=== PATIENT | male | born 1955 | race Caucasian/White ===

== ENCOUNTER 2018-05-11 22:26 | Inpatient (IN) ==
[2018-05-12] MEDS ORDERED: Naloxone 0.4 MG/ML INJ IVP PRN (00:56)
--- NOTE | 2018-05-12 01:08 | Internal Med History&Physical ---
<Opal Linton - Last Filed: 05/12/18 01:49> Date of Encounter: 05/12/18 Time of Encounter: 01:05 Internal Medicine - H&P: HPI Chief complaint: cold symptoms Admitted From: Emergency Dept Plans for Post Hospital Care: Home History of present illness: Mr. Perales is a 63 year old male with past medical history of COPD, diabetes, hyperlipidemia, hypertension, bipolar disorder, schizophrenia. Patient arrived to [place] emergency department earlier today complaining of cold like symptoms. He reported productive cough with sputum, generalized muscle aches. In [place] [facility] emergency department, he was hypoxic, somnolent. Initial ABG showed evidence of respiratory acidosis. Serial ABG's were drawn in [place] emergency department, showing that his acidosis and CO2 retention was progressively worsening. Patient was initially placed on BiPAP without any improvement in his blood gases. He initially refused intubation, but later agreed. Patient was intubated and transferred to [place] for further management and workup. Upon arrival, patient did not have any family members at bedside to give adequate history. Past Med Surg Social Fam HX - Past Medical History Medical history: COPD, diabetes, hyperlipidemia, hypertension Additional medical history: Hernia Psychiatric history: bipolar, schizophrenia - Past Surgical History Additional surgical history: Bowel surgery. Colostomy. Reversal of colostomy. Rt arm surgery. - Social History Smoking Status: Current every day smoker Smokeless Tobacco Status: No Alcohol use: none Drug use: none Internal Medicine - H&P: Meds Unable To Obtain [Unable to Obtain] 01/11/18 [History] Allergy/AdvReac Type Severity Reaction Status Date / Time vancomycin Allergy Hives Verified 05/11/18 13:30 ROS unobtainable: due to endotracheal tube All Systems PM: A 10-system review of systems was performed and is negative for pertinent findings except as documented above in the HPI. - Constitutional General appearance: Present: no acute distress, underweight. Absent: answers questions appropriately Exam: Patient appears thin. He is intubated and sedated, appears to be in no acute distress. - Head Head exam: Present: atraumatic, normocephalic - Eye Eye exam: Present: PERRL, sclera anicteric. Absent: periorbital tenderness Pupils: Present: PERRL - Neck Neck exam general surgery: Present: supple, trachea midline - Respiratory Respiratory exam: Present: decreased breath sounds. Absent: rales, respiratory distress, rhonchi, wheezes - Cardiovascular Cardiovascular exam: Present: +S1, +S2, tachycardia - GI/Abdominal GI/Abdominal exam: Present: normal bowel sounds, soft. Absent: distended, tenderness Additional comments: Abdominal scar present from prior surgeries, abdominal hernia present. - Extremities Exam Extremities exam: Absent: cyanotic, pedal edema - Neurological Exam Additional comments: intubated and sedated. - Psychiatric Psychiatric exam: Present: normal affect, normal mood - Skin Skin exam: Present: dry, intact - Assessment and plan (1) Acute respiratory failure with hypoxia and hypercapnia Current Visit: Yes Status: Acute Assessment and plan: Patient arrived to [place] emergency department earlier with symptoms of productive cough, generalized muscle aches. He was hypoxic and hypercapnic without any improvement on BiPAP, and was subsequently intubated. Patient did meet Sirs criteria with tachycardia, tachypnea, likely secondary to respiratory distress. No current concern for sepsis at this time Chest x-ray showed no obvious focal consolidation. WBC normal, initial troponin negative. Etiology likely secondary to COPD exacerbation. Plan: blood cultures x2 respiratory infectious panel Levaquin day 1 solumedrol BID scheduled DuoNebs Legionella, S.pneumo, mycoplasma antigens pending continue with mechanical ventilation: FIO2: 50%, Tv: 500, R: 14, PEEP: 5 sedation with propofol, fentanyl. (2) COPD exacerbation Current Visit: Yes Status: Acute Assessment and plan: plan as above (3) Hypertension Current Visit: Yes Status: Acute Assessment and plan: currently hypotensive, hold home blood pressure meds. Qualifiers: Hypertension type: essential hypertension Qualified Code(s): I10 - Essential (primary) hypertension (4) Hyperlipidemia Current Visit: Yes Status: Acute Qualifiers: Hyperlipidemia type: unspecified Qualified Code(s): E78.5 - Hyperlipidemia, unspecified (5) DVT prophylaxis Current Visit: Yes Status: Acute Assessment and plan: heparin SQ - Time Spent With Patient Total time spent is greater than 50% in coordination of care (as documented) at patient's floor/unit and/or counseling patient: <Sim Epps - Last Filed: 05/12/18 03:23> Date of Encounter: 05/12/18 Internal Medicine - H&P: HPI History of present illness: Mr. Perales is a 63 year old male All Systems PM: A 10-system review of systems was performed and is negative for pertinent findings except as documented above in the HPI. - Constitutional Vitals: Temp Pulse Resp BP Pulse Ox 97.9 F 64 14 93/65 98 05/12/18 01:00 05/12/18 01:59 05/12/18 02:20 05/12/18 02:20 05/12/18 02:20 Internal Med - H&P Results - Labs Labs: Cardiac Enzymes 05/12/18 Range/Units 00:59 Troponin I 0.03 (< 0.04) ng/mL - Time Spent With Patient Total time spent is greater than 50% in coordination of care (as documented) at patient's floor/unit and/or counseling patient: - Attending Attestation I performed a history and physical exam of the patient and discussed management with the resident. I reviewed the resident's note and agree with the documented findings and plan of care. José Perales is a 63-year-old male with COPD who is brought here on transfer from [facility] where he was taken to initially with flulike symptoms and was noted hypoxic and somnolent. He was noted hypoxic and ABG showing signs of respiratory acidosis. He failed to improve on noninvasive ventilation and became more hypercarbic and acidotic. He was subsequently intubated and he is currently here being managed for acute hypercarbic respiratory failure due to COPD exacerbation. He will remain on light sedation. Repeat blood gas. Send respiratory virus panel. Steroids and antibiotics indicated. Every 4 hourly nebulizer therapy. Sedate to RASS -1 to assess readiness to extubate in the morning. DVT prophylaxis required. SYLVIE JENKINS.
[2018-05-12] MEDS ORDERED: Artificial Tears SOLN 15 ML BOTTLE BOTH EYES PRN (01:37)
[2018-05-12] MEDS ORDERED: Dextrose Gel 15 GM/37.5 ML TUBE PO PRN ×2 (02:17)
[2018-05-12] MEDS ORDERED: *HR* Dextrose 50 % in Water (Syg) 50 ML SYRINGE IVP PRN (02:17)
[2018-05-12] MEDS ORDERED: D5% in Water 1,000 ML IVC PRN (02:17)
[2018-05-12] MEDS: Ipratropium/Albuterol Neb 3 ML IH SCH ×6 (03:37→23:40)
[2018-05-12] MEDS: Artificial Tears SOLN 15 ML BOTTLE BOTH EYES SCH ×5 (04:50→20:06)
[2018-05-12 04:59] LABS: ABG Base Excess 1 mEq/L (-2 to 3); ABG HCO3 28 mEq/L (21-27); ABG Oxygen Saturation 96 % (95-98); ABG PCO2 53 mmHg (35-45); ABG PH 7.33 pH Units (7.32-7.45); ABG PO2 88 mmHg (85-104); ABG TCO2 30 mEq/L (20-26); Blood Gas Modality VC; Blood Gas PEEP 5 cm H2O; Blood Gas Respiration Rate 14; Blood Gas VT 500 cc
[2018-05-12] MEDS: *HR* Heparin 5,000 UNIT/ML VIAL SQ SCH ×2 (05:11→18:02)
[2018-05-12] MEDS: Insulin LISPRO 300 UNITS/3 ML VIAL SQ SCH ×3 (05:11→18:02)
[2018-05-12] MEDS ORDERED: MethylPREDNISolone 40 MG/ML VIAL IVP SCH (06:00)
--- NOTE | 2018-05-12 06:44 | Pulmonology Consult Note ---
<Fredis Gallardo W - Last Filed: 05/12/18 09:21> Date of Encounter: 05/12/18 Medications and Allergies Unable To Obtain [Unable to Obtain] 01/11/18 [History] Allergy/AdvReac Type Severity Reaction Status Date / Time vancomycin Allergy Hives Verified 05/11/18 13:30 All Systems: The remainder of the systems were reviewed and are negative Physical Examination Vital Signs: Vital Signs, Last 4 Hours Temp Pulse Resp BP Pulse Ox 05/12/18 07:17 17 120/72 98 05/12/18 07:00 70 14 120/72 95 05/12/18 06:00 58 14 102/69 98 05/12/18 05:52 15 96/65 96 05/12/18 05:00 74 16 108/67 98 05/12/18 04:09 96.4 F L 05/12/18 04:00 70 14 104/66 98 Ventilator Settings Ventilator Settings: Ventilator Settings, Last 8 Hours Ventilator Tidal Volume 500 Setting Ventilator Tidal Volume 500 Setting Ventilator Tidal Volume 500 Setting Ventilator Tidal Volume 500 Setting Ventilator Tidal Volume 500 Setting Ventilator Tidal Volume 500 Setting Ventilator Tidal Volume 500 Setting Ventilator Tidal Volume 500 Setting Ventilator Tidal Volume 500 Setting Ventilator Tidal Volume 500 Setting Ventilator Tidal Volume 500 Setting Ventilator Tidal Volume 500 Setting Ventilator Tidal Volume 500 Setting Ventilator Tidal Volume 500 Setting Ventilator Tidal Volume 500 Setting Ventilator Respiratory Rate 14 Setting Ventilator Respiratory Rate 14 Setting Ventilator Respiratory Rate 14 Setting Ventilator Respiratory Rate 14 Setting Ventilator Respiratory Rate 14 Setting Ventilator Respiratory Rate 14 Setting Ventilator Respiratory Rate 14 Setting Ventilator Respiratory Rate 14 Setting Ventilator Respiratory Rate 14 Setting Ventilator Respiratory Rate 14 Setting Ventilator Respiratory Rate 14 Setting Ventilator Respiratory Rate 14 Setting Ventilator Respiratory Rate 14 Setting Ventilator Respiratory Rate 14 Setting Ventilator Respiratory Rate 14 Setting Actual Respiratory Rate 17 Actual Respiratory Rate 14 Actual Respiratory Rate 14 Actual Respiratory Rate 14 Actual Respiratory Rate 14 Actual Respiratory Rate 14 Actual Respiratory Rate 14 Actual Respiratory Rate 14 Actual Respiratory Rate 14 Actual Respiratory Rate 14 Actual Respiratory Rate 14 Actual Respiratory Rate 14 Actual Respiratory Rate 14 Actual Respiratory Rate 21 Positive End Expiratory 5 Pressure Positive End Expiratory 5 Pressure Positive End Expiratory 5 Pressure Positive End Expiratory 5 Pressure Positive End Expiratory 5 Pressure Positive End Expiratory 5 Pressure Positive End Expiratory 5 Pressure Positive End Expiratory 5 Pressure Positive End Expiratory 5 Pressure Positive End Expiratory 5 Pressure Positive End Expiratory 5 Pressure Positive End Expiratory 5 Pressure Positive End Expiratory 5 Pressure Positive End Expiratory 5 Pressure Positive End Expiratory 5 Pressure Peak Inspiratory Airway 20 Pressure Peak Inspiratory Airway 21 Pressure Peak Inspiratory Airway 20 Pressure Peak Inspiratory Airway 20 Pressure Peak Inspiratory Airway 20 Pressure Peak Inspiratory Airway 22 Pressure Peak Inspiratory Airway 22 Pressure Peak Inspiratory Airway 36 Pressure Peak Inspiratory Airway 31 Pressure Peak Inspiratory Airway 40 Pressure Peak Inspiratory Airway 33 Pressure Peak Inspiratory Airway 31 Pressure Peak Inspiratory Airway 44 Pressure Peak Inspiratory Airway 33 Pressure Results - Laboratory Findings CBC and BMP: 05/12/18 06:29 05/12/18 06:29 ABG ABG pH 7.33 pH Units (7.32-7.45) 05/12/18 04:55 ABG pCO2 53 mmHg (35-45) H 05/12/18 04:55 ABG pO2 88 mmHg (85-104) 05/12/18 04:55 ABG O2 Saturation 96 % (95-98) 05/12/18 04:55 Abnormal lab findings: Abnormal lab results RBC 4.10 M/mcL (4.19-5.50) L 05/12/18 06:29 ABG pCO2 53 mmHg (35-45) H 05/12/18 04:55 ABG HCO3 28 mEq/L (21-27) H 05/12/18 04:55 ABG Total CO2 30 mEq/L (20-26) H 05/12/18 04:55 Chloride 108 mEq/L (98-107) H 05/12/18 06:29 BUN/Creatinine Ratio 30 (6-26) H 05/12/18 06:29 Glucose 125 mg/dL (70-105) H 05/12/18 06:29 POC Glucose 143 mg/dL (70-99) H 05/12/18 01:03 Calculated Osmolality 304 (280-300) H 05/12/18 06:29 AST 10 Units/L (13-39) L 05/12/18 06:29 Serum Total Protein 5.9 g/dL (6.4-8.9) L 05/12/18 06:29 Albumin 3.3 g/dL (3.5-5.7) L 05/12/18 06:29 - Microbiology Findings Microbiology Findings: Microbiology, Last 48 Hours 05/12/18 01:25 Blood Culture - Preliminary Peripheral Venipuncture Culture is incubating and being continuously monitored for growth. Final report to follow. 05/12/18 01:29 Blood Culture - Preliminary Peripheral Venipuncture Culture is incubating and being continuously monitored for growth. Final report to follow. - Clinical Findings Intake & Output: Intake & Output 05/11/18 05/11/18 05/12/18 15:59 23:59 07:59 Output Total 305 / 305 Balance -305 / -305 Weight 59.6 kg Consult Discharge Plan - Plan Referrals: NONE,PCP [Primary Care Provider] - - Attending Attestation I examined this patient and my medical decision-making was reviewed with the Resident Physician. I agree with the documented findings, disposition and treatment plan as described except to the extent set forth below. We inde pendently had [id number] contact with the patient Patient seen and examined at bedside Labs, radiology, chart personally reviewed. Management was reviewed during multidisciplinary critical care rounds. LAMINATION OPERATOR: Patient currently sedated but able to open his eyes and follow simple commands plan to transition from propofol to Precedex and fentanyl preparing for liberation from the vent Pulm: Acute on chronic hypoxic hypercapnic respiratory failure secondary to COPD exacerbation possibly complicated by pneumonia he is currently intubated acceptable gas exchange today on vent plan for CPAP trial and likely liberation later in the day continue IV steroids and bronchodilators will funeral planning counselor the patient on the necessity for tobacco cessation. Start Symbicort 160/4.52 puffs twice a day Cards: Blood pressure monitored and stable no evidence of ACS check BNP GI: Some bloody contents from the OG tube which I suspect reflects OG tube traum a he is on a PPI for this is suspected by removal of the tube that this will improve things and if there is further concern we will consult GI recheck H&H now Nutrition: By mouth for now pending liberation from the vent Renal: UOP Monitored, Cont to Trend sCr and monitor Electrolytes. ID: He is currently on antimicrobials for community-acquired pneumonia with planned to de-escalate based upon culture and sensitivities Heme/Onc: DVT prophylaxis given. H&H stable. There is some concern about bleeding from upper GI source with this is quite minor at this time and we will monitor it Endo: Glucose Monitored Integ/MSK: Skin Care per routine ICU Nursing Protocol to prevent ulcers. Lines: All lines examined without evidence of infection : Dispo: Remain in ICU for ventilator management CODE: Full <David Jaimes - Last Filed: 05/12/18 16:42> Date of Encounter: 05/12/18 Time of Encounter: 08:15 Assessment and Plan (1) Acute respiratory failure with hypoxia and hypercapnia Current Visit: Yes Status: Acute Pt was intubated at [place] last night for worsening ABGs and respiratory distress Likely precipitated by COPD exacerbation related to viral infection Pt was tachypnic and tachycardic on arrival at [place], but likely related to respiratory distress vs true SIRS reaction WBC remains normal at 6.9 CXR revealed bibasilar airspace disease, atelectasis vs pneumonia. No obvious consolidations. Respiratory infection panel negative MRSA swab negative Strep pneumo and legionella antigens negative ABG this morning improved at pH 7.33; pCO2 53 and Bicarb 28 Tolerated CPAP trial well with occasional tachypnea likely related to anxiety Extubated successfully to BiPAP Continue to monitor Blood cultures x2 pending Sputum culture pending - bacteria seen with few gram positive cocci Mycoplasma IgG and IgM pending Levaquin day 1 Solumedrol 40mg TID Ativan prn for anxiety Scheduled duonebs Supplemental O2 with goal SpO2 >88% Restarting po home meds (2) COPD exacerbation Current Visit: Yes Status: Acute plan as above (3) Hyperlipidemia Current Visit: Yes Status: Acute Continue home statin Qualifiers: Hyperlipidemia type: unspecified Qualified Code(s): E78.5 - Hyperlipidemia, unspecified (4) BPH (benign prostatic hyperplasia) Current Visit: Yes Status: Chronic Known hx per outpatient notes with urology Continue home meds of tamsulosin and oxybutynin Qualifiers: Lower urinary tract symptom presence: symptoms present Lower urinary tract symptom detail: nocturia Qualified Code(s): N40.1 - Benign prostatic hyperplasia with lower urinary tract symptoms; R35.1 - Nocturia (5) DVT prophylaxis Current Visit: Yes Status: Acute SQ Heparin History of Present Illness Consult date: 05/12/18 Reason for consult: cough, COPD Chief complaint: COPD exacerbation History of present illness: Mr. Perales is a 63M with PMH of COPD, diabetes, hyperlipidemia, hypertension, bipolar disorder, schizophrenia. Patient arrived to [place] emergency department on 05/11 complaining of cold like symptoms. He reported productive cough with sputum, generalized muscle aches. In [place] emergency department, he was hypoxic, somnolent. Initial ABG showed evidence of respiratory acidosis. Serial ABG's were drawn in [place] emergency department, showing that his acidosis and CO2 retention was progressively worsening. Patient was initially placed on BiPAP without any improvement in his blood gases. He initially refused intubation, but later agreed. Patient was intubated and transferred to [place] for further management and workup. Upon arrival, patient did not have any family members at bedside to give adequate history. Pt seen and examined at bedside. Pt resting in bed and intubated. Responds to verbal stimuli and follows commands. Pt gestured for pen and was able to write "Can I go home?" He does endorse that he feels like he needs to cough. Denies any chest pain, palpitations, or abdominal pain. Past Med Surg Social Fam HX - Past Medical History Medical history: COPD, diabetes, hyperlipidemia, hypertension Additional medical history: Hernia Psychiatric history: bipolar, schizophrenia - Past Surgical History Additional surgical history: Bowel surgery. Colostomy. Reversal of colostomy. Rt arm surgery. - Social History Smoking Status: Current every day smoker Smokeless Tobacco Status: No Alcohol use: none Drug use: none ROS unobtainable: due to endotracheal tube All Systems: The remainder of the systems were reviewed and are negative Physical Examination Vital Signs: Vital Signs, Last 4 Hours Temp Pulse Resp BP Pulse Ox 05/12/18 06:00 58 14 102/69 98 05/12/18 05:52 15 96/65 96 05/12/18 05:00 74 16 108/67 98 05/12/18 04:09 96.4 F L 05/12/18 04:00 70 14 104/66 98 05/12/18 03:38 14 103/71 98 05/12/18 03:00 54 14 107/69 97 General appearance: alert, appears uncomfortable Eyes: nonicteric ENT: oropharynx moist Neck: supple Effort: normal Inspection: normal Auscultation: bilateral: rales (> in bases and on left ) Percussion: bilateral: not dull Cardiovascular: regular rate and rhythm Gastrointestinal: normoactive bowel sounds, soft, non-tender, non-distended Integumentary: normal Extremities: no cyanosis, no edema, no clubbing, pink and warm, pulses normal, no ischemia or petechiae Musculoskeletal: no deformities Gait: normal posture pupils equal and round, motor strength normal and symmetric mood appropriate, affect normal Ventilator Settings Ventilator Settings: Ventilator Settings, Last 8 Hours Ventilator Tidal Volume 500 Setting Ventilator Tidal Volume 500 Setting Ventilator Tidal Volume 500 Setting Ventilator Tidal Volume 500 Setting Ventilator Tidal Volume 500 Setting Ventilator Tidal Volume 500 Setting Ventilator Tidal Volume 500 Setting Ventilator Tidal Volume 500 Setting Ventilator Tidal Volume 500 Setting Ventilator Tidal Volume 500 Setting Ventilator Tidal Volume 500 Setting Ventilator Tidal Volume 500 Setting Ventilator Tidal Volume 500 Setting Ventilator Respiratory Rate 14 Setting Ventilator Respiratory Rate 14 Setting Ventilator Respiratory Rate 14 Setting Ventilator Respiratory Rate 14 Setting Ventilator Respiratory Rate 14 Setting Ventilator Respiratory Rate 14 Setting Ventilator Respiratory Rate 14 Setting Ventilator Respiratory Rate 14 Setting Ventilator Respiratory Rate 14 Setting Ventilator Respiratory Rate 14 Setting Ventilator Respiratory Rate 14 Setting Ventilator Respiratory Rate 14 Setting Ventilator Respiratory Rate 14 Setting Actual Respiratory Rate 14 Actual Respiratory Rate 14 Actual Respiratory Rate 14 Actual Respiratory Rate 14 Actual Respiratory Rate 14 Actual Respiratory Rate 14 Actual Respiratory Rate 14 Actual Respiratory Rate 14 Actual Respiratory Rate 14 Actual Respiratory Rate 14 Actual Respiratory Rate 14 Actual Respiratory Rate 21 Positive End Expiratory 5 Pressure Positive End Expiratory 5 Pressure Positive End Expiratory 5 Pressure Positive End Expiratory 5 Pressure Positive End Expiratory 5 Pressure Positive End Expiratory 5 Pressure Positive End Expiratory 5 Pressure Positive End Expiratory 5 Pressure Positive End Expiratory 5 Pressure Positive End Expiratory 5 Pressure Positive End Expiratory 5 Pressure Positive End Expiratory 5 Pressure Positive End Expiratory 5 Pressure Peak Inspiratory Airway 20 Pressure Peak Inspiratory Airway 20 Pressure Peak Inspiratory Airway 20 Pressure Peak Inspiratory Airway 22 Pressure Peak Inspiratory Airway 22 Pressure Peak Inspiratory Airway 36 Pressure Peak Inspiratory Airway 31 Pressure Peak Inspiratory Airway 40 Pressure Peak Inspiratory Airway 33 Pressure Peak Inspiratory Airway 31 Pressure Peak Inspiratory Airway 44 Pressure Peak Inspiratory Airway 33 Pressure Results - Laboratory Findings CBC and BMP: 05/12/18 09:46 05/12/18 06:29 ABG ABG pH 7.33 pH Units (7.32-7.45) 05/12/18 04:55 ABG pCO2 53 mmHg (35-45) H 05/12/18 04:55 ABG pO2 88 mmHg (85-104) 05/12/18 04:55 ABG O2 Saturation 96 % (95-98) 05/12/18 04:55 Abnormal lab findings: Abnormal lab results ABG pCO2 53 mmHg (35-45) H 05/12/18 04:55 ABG HCO3 28 mEq/L (21-27) H 05/12/18 04:55 ABG Total CO2 30 mEq/L (20-26) H 05/12/18 04:55 POC Glucose 143 mg/dL (70-99) H 05/12/18 01:03 - Microbiology Findings Microbiology Findings: Microbiology, Last 48 Hours 05/12/18 01:25 Blood Culture - Preliminary Peripheral Venipuncture Culture is incubating and being continuously monitored for growth. Final report to follow. 05/12/18 01:29 Blood Culture - Preliminary Peripheral Venipuncture Culture is incubating and being continuously monit ored for growth. Final report to follow. - Clinical Findings Intake & Output: Intake & Output 05/11/18 05/11/18 05/12/18 15:59 23:59 07:59 Output Total 305 / 305 Balance -305 / -305 Weight 59.6 kg
[2018-05-12 06:45] LABS: Basophils % 0.2 %; Hematocrit 38.3 % (37.5-50.1); Immature Granulocytes % 0.4 % (0-4); Lymphocytes % 10.8 %; Mean Corpuscular HGB Conc 33.9 g/dL (31.6-35.5); Mean Corpuscular Hemoglobin 31.7 pg (28.0-33.3); Mean Corpuscular Volume 93.4 fL (83.0-100.0); Mean Platelet Volume 9.7 fL (9.4-12.4); Monocytes # 0.9 K/mcL (0.0-1.3); Neutrophils # 7.6 K/mcL (1.6-8.9); Platelet Count 179 K/mcL (140-400); Segmented Neutrophils % 79.6 %
[2018-05-12 07:13] LABS: Alanine Aminotransferase 9 Units/L (7-52); Albumin 3.3 g/dL (3.5-5.7); Albumin/Globulin Ratio 1.3 (1.1-2.2); Alkaline Phosphatase 52 Units/L (34-104); Aspartate Amino Transferase 10 Units/L (13-39); BUN/Creatinine Ratio 30 (6-26); Bilirubin,Total 0.3 mg/dL (0.3-1.0); Blood Urea Nitrogen 21 mg/dL (8-23); Carbon Dioxide 26 mEq/L (23-29); Chloride 108 mEq/L (98-107); Globulin 2.6 g/dL (2.4-3.5); Glucose 125 mg/dL (70-105); Osmolality,Calculated 304 (280-300); Phosphorous 4.3 mg/dL (2.7-4.5); Potassium 3.6 mEq/L (3.5-5.1); Sodium 145 mEq/L (136-145); Total Protein 5.9 g/dL (6.4-8.9); eGFR For Non-African Americans > 60 (> 60)
[2018-05-12] MEDS: FentaNYL (PF) 1,000 MCG in 0.9 % Sodium Chloride 80 ML IVC SCH (07:21)
[2018-05-12] MEDS ORDERED: Dexmedetomidine HCl 400 MCG/100 ML MLS IVC ONE (07:25)
[2018-05-12] MEDS: Dexmedetomidine HCl 400 MCG/100 ML MLS IVC SCH ×2 (07:30→19:30)
[2018-05-12 07:54] LABS: Bilirubin,Urine Small (Negative); Blood,Urine Moderate (Negative); Glucose,Urine (UA) Normal (Normal); Ketones,Urine Trace mg/dL (Negative); Leukocyte Esterase,Urine Negative (Negative); Nitrite,Urine Negative (Negative); Protein,Urine 30 mg/dL (Neg-Trace); Specific Gravity,Urine 1.023 (1.010-1.025); Urobilinogen,Urine Normal (Normal)
[2018-05-12 07:55] LABS: Bacteria,Urine None Seen per hpf (None-Few); Hyaline Casts,Urine None Seen per lpf (None-Few); RBC,Urine 50-100 per hpf (0-3); Squamous Epithelial Cell,Urine Many per lpf (None-Few)
[2018-05-12 07:58] LABS: Clarity,Urine Clear (Clear); Color,Urine Yellow (Yellow)
[2018-05-12] MEDS: Levofloxacin 500 MG/100 ML 500 MG/100 ML BAG IVPB SCH (08:07)
[2018-05-12] MEDS: Chlorhexidine Rinse 15 ML MOUTHWASH MM SCH ×2 (08:07→20:06)
[2018-05-12] MEDS: Pantoprazole 40 MG VIAL IVP SCH (08:07)
[2018-05-12 09:53] LABS: Hematocrit 39.3 % (37.5-50.1)
[2018-05-12] MEDS ORDERED: Potassium Chloride 40 MEQ, Lidocaine 1% 2 ML in D5% in Water 500 ML IVPB ONE (10:24)
[2018-05-12 10:25] LABS: Adenovirus Not Detected (Not Detect); Bordetella Pertussis Not Detected (Not Detect); Chlamydophila pneumoniae Not Detected (Not Detect); Coronavirus 229E Not Detected (Not Detect); Coronavirus HKU1 Not Detected (Not Detect); Coronavirus NL63 Not Detected (Not Detect); Coronavirus OC43 Not Detected (Not Detect); Human Metapneumovirus Not Detected (Not Detect); Human Rhinovirus/Enterovirus Not Detected (Not Detect); Influenza A Subtype 2009 H1 Not Detected (Not Detect); Influenza A Untypeable Not Detected (Not Detect); Influenza B Not Detected (Not Detect); Mycoplasma pneumoniae Not Detected (Not Detect); Parainfluenza Virus 1 Not Detected (Not Detect); Parainfluenza Virus 2 Not Detected (Not Detect); Parainfluenza Virus 3 Not Detected (Not Detect); Parainfluenza Virus 4 Not Detected (Not Detect); Respiratory Syncytial Virus Not Detected (Not Detect)
[2018-05-12] MEDS ORDERED: *HR* LORazepam 2 MG/ML VIAL IVP PRN (11:17)
[2018-05-12] MEDS ORDERED: *HR* Rocuronium Bromide 50 MG/5 ML VIAL IVC ONE (14:29)
[2018-05-12] MEDS ORDERED: *HR* Etomidate 40 MG/20 ML VIAL IVP ONE (14:29)
[2018-05-12] MEDS: MethylPREDNISolone 40 MG/ML VIAL IVP SCH ×2 (15:11→21:06)
[2018-05-12] MEDS ORDERED: Ringers Solution, Lactated 1,000 ML IVC SCH (17:00)
[2018-05-12] MEDS: Ringers Solution, Lactated 500 ML IVC SCH (20:05)
[2018-05-12] MEDS ORDERED: risperiDONE 1 MG TABLET PO SCH (20:12)
[2018-05-12] MEDS: lamoTRIgine 100 MG TABLET PO SCH (21:09)
[2018-05-13] MEDS: Ringers Solution, Lactated 500 ML IVC SCH ×3 (00:04→07:42)
[2018-05-13] MEDS: Artificial Tears SOLN 15 ML BOTTLE BOTH EYES SCH ×2 (00:05→04:39)
[2018-05-13] MEDS: FentaNYL (PF) 1,000 MCG in 0.9 % Sodium Chloride 80 ML IVC SCH (00:05)
[2018-05-13] MEDS: Insulin LISPRO 300 UNITS/3 ML VIAL SQ SCH ×4 (00:13→16:16)
[2018-05-13] MEDS: Ipratropium/Albuterol Neb 3 ML IH SCH ×6 (03:39→23:20)
[2018-05-13 03:43] LABS: Basophils % 0.1 %; Hematocrit 37.9 % (37.5-50.1); Hemoglobin 12.6 g/dL (12.9-16.9); Immature Platelets 1.8 % (1.1-6.1); Lymphocytes # 0.6 K/mcL (0.6-4.6); Lymphocytes % 5.5 %; Mean Corpuscular HGB Conc 33.2 g/dL (31.6-35.5); Mean Corpuscular Volume 93.1 fL (83.0-100.0); Mean Platelet Volume 9.5 fL (9.4-12.4); Monocytes # 0.8 K/mcL (0.0-1.3); Neutrophils # 9.7 K/mcL (1.6-8.9); Platelet Count 196 K/mcL (140-400); Red Blood Count 4.07 M/mcL (4.19-5.50); Segmented Neutrophils % 86.4 %
[2018-05-13 04:02] LABS: Alanine Aminotransferase 10 Units/L (7-52); Albumin 3.1 g/dL (3.5-5.7); Albumin/Globulin Ratio 1.2 (1.1-2.2); Alkaline Phosphatase 46 Units/L (34-104); Aspartate Amino Transferase 10 Units/L (13-39); BUN/Creatinine Ratio 26 (6-26); Bilirubin,Total 0.3 mg/dL (0.3-1.0); Blood Urea Nitrogen 16 mg/dL (8-23); Calcium 8.7 mg/dL (8.6-10.3); Carbon Dioxide 29 mEq/L (23-29); Chloride 107 mEq/L (98-107); Globulin 2.6 g/dL (2.4-3.5); Glucose 144 mg/dL (70-105); Magnesium 1.7 mg/dL (1.6-2.6); Osmolality,Calculated 300 (280-300); Phosphorous 2.3 mg/dL (2.7-4.5); Potassium 3.5 mEq/L (3.5-5.1); Sodium 143 mEq/L (136-145); Total Protein 5.7 g/dL (6.4-8.9); eGFR For Non-African Americans > 60 (> 60)
[2018-05-13] MEDS: *HR* Heparin 5,000 UNIT/ML VIAL SQ SCH ×2 (05:56→17:19)
[2018-05-13] MEDS: Levofloxacin 500 MG/100 ML 500 MG/100 ML BAG IVPB SCH (07:41)
[2018-05-13] MEDS: MethylPREDNISolone 40 MG/ML VIAL IVP SCH ×3 (07:41→20:21)
[2018-05-13] MEDS: lamoTRIgine 100 MG TABLET PO SCH ×2 (07:41→20:16)
[2018-05-13] MEDS: Pantoprazole 40 MG VIAL IVP SCH (07:41)
[2018-05-13] MEDS ORDERED: risperiDONE 1 MG TABLET PO SCH ×2 (09:00→21:00)
--- NOTE | 2018-05-13 09:14 | Pulmonology Progress Note ---
<KarynCipriano talbert M - Last Filed: 05/13/18 10:35> Date of Encounter: 05/13/18 Objective PUL Vital signs: Last Vital Signs Temp 98.1 F 05/13/18 07:40 Pulse 90 05/13/18 10:00 Resp 20 05/13/18 10:00 BP 104/66 05/13/18 10:00 Pulse Ox 94 05/13/18 10:00 Results - Laboratory Findings CBC and BMP: 05/13/18 03:26 05/13/18 03:26 ABG ABG pH 7.33 pH Units (7.32-7.45) 05/12/18 04:55 ABG pCO2 53 mmHg (35-45) H 05/12/18 04:55 ABG pO2 88 mmHg (85-104) 05/12/18 04:55 ABG O2 Saturation 96 % (95-98) 05/12/18 04:55 Abnormal lab findings: Abnormal lab results WBC 11.2 K/mcL (4.3-11.1) H 05/13/18 03:26 RBC 4.07 M/mcL (4.19-5.50) L 05/13/18 03:26 Hgb 12.6 g/dL (12.9-16.9) L 05/13/18 03:26 Neutrophils # 9.7 K/mcL (1.6-8.9) H 05/13/18 03:26 ABG pCO2 53 mmHg (35-45) H 05/12/18 04:55 ABG HCO3 28 mEq/L (21-27) H 05/12/18 04:55 ABG Total CO2 30 mEq/L (20-26) H 05/12/18 04:55 Creatinine 0.62 mg/dL (0.70-1.30) L 05/13/18 03:26 Glucose 144 mg/dL (70-105) H 05/13/18 03:26 POC Glucose 153 mg/dL (70-99) H 05/12/18 23:16 Phosphorus 2.3 mg/dL (2.7-4.5) L 05/13/18 03:26 AST 10 Units/L (13-39) L 05/13/18 03:26 Serum Total Protein 5.7 g/dL (6.4-8.9) L 05/13/18 03:26 Albumin 3.1 g/dL (3.5-5.7) L 05/13/18 03:26 Urine Protein 30 mg/dL (Neg-Trace) H 05/12/18 06:30 Urine Ketones Trace mg/dL (Negative) H 05/12/18 06:30 Urine Blood Moderate (Negative) H 05/12/18 06:30 Urine Bilirubin Small (Negative) H 05/12/18 06:30 Urine Microscopic RBC 50-100 per hpf (0-3) H 05/12/18 06:30 Urine Microscopic WBC 5-15 per hpf (0-3) H 05/12/18 06:30 Ur Squamous Epith Cells Many per lpf (None-Few) H 05/12/18 06:30 - Microbiology Findings Microbiology Findings: Microbiology, Last 48 Hours 05/12/18 08:56 Sputum Culture - Preliminary Sputum 05/12/18 06:30 Legionella Antigen - Final Urine,[place] Streptococcus pneumoniae Antigen (M - Final 05/12/18 01:25 Blood Culture - Preliminary Peripheral Venipuncture Culture is incubating and being continuously monitored for growth. Final report to follow. 05/12/18 01:29 Blood Culture - Preliminary Peripheral Venipuncture Culture is incubating and being continuously monitored for growth. Final report to follow. - Clinical Findings Intake & Output: Intake & Output 05/12/18 05/13/18 05/13/18 23:59 07:59 15:59 Intake Total 613.5 / 613.5 783 / 783 Output Total 900 / 900 600 / 600 Balance -286.5 / -286.5 183 / 183 Weight 59.45 kg Consult Discharge Plan - Plan Referrals: NONE,PCP [Primary Care Provider] - - Attending Attestation I examined this patient and my medical decision-making was reviewed with the Resident Physician. I agree with the documented findings, disposition and treatment plan as described except to the extent set forth below. Patient seen and examined. Labs, radiology, chart personally reviewed. Agree with resident's history and physical, assessment, plan with following comments: ROLL WINDER: Patient follows commands, Pulmonary: Acceptable oxygenation and ventilation. Patient was COPD exacerbation which has improved Recommend: Systemic steroid daily with plan to taper over 2 weeks complete 5 day course or current antibiotic is acceptable Schedule DuoNeb's while inpatient every 6 hours Patient should have ongoing nebulizer with MACO/CHANELLE solution to be used q6 Hours Recommend starting Symbicort 160/4.52 puffs twice a day Walking pulse oximetry study. A discharge Outpatient pulmonary follow-up 2-4 weeks at the time of discharge for further evaluation Cardiovascular: stable Patient can be transferred out of ICU. <David Jaimes Hailey - Last Filed: 05/13/18 14:21> Date of Encounter: 05/13/18 Time of Encounter: 08:45 Assessment and Plan (1) Acute respiratory failure with hypoxia and hypercapnia Current Visit: Yes Status: Acute Pt was intubated at [facility] on 05/11 for worsening ABGs and respiratory distress Likely precipitated by COPD exacerbation related to viral infection Pt was tachypnic and tachycardic on arrival at [facility], but likely related to respiratory distress vs true SIRS reaction WBC slightly elevated at 11.2 today - likely related to steroid therapy CXR from 05/12 revealed bibasilar airspace disease, atelectasis vs pneumonia. No obvious consolidations. Respiratory infection panel negative MRSA swab negative Strep pneumo and legionella antigens negative Serial ABGs improved and successfully extubated on 05/12 to BiPAP Continue to monitor Blood cultures x2 pending Sputum culture pending - bacteria seen with few gram positive cocci Mycoplasma IgG and IgM pending Levaquin day 2 Solumedrol 40mg TID Ativan prn for anxiety Scheduled duonebs Supplemental O2 with goal SpO2 >88% Restarting po home meds Pt states he only has albuterol rescue inhaler at home. Will start on some maintenance inhalers for home. To follow with pulmonology after discharge. Stable for transfer to telemetry bed. Spoke with Dr. Soliz who accepted the pt at 08:53 (2) COPD exacerbation Current Visit: Yes Status: Acute Plan as above (3) Hyperlipidemia Current Visit: Yes Status: Acute Continue home statin Qualifiers: Hyperlipidemia type: unspecified Qualified Code(s): E78.5 - Hyperlipidemia, unspecified (4) BPH (benign prostatic hyperplasia) Current Visit: Yes Status: Chronic Continue home meds Qualifiers: Lower urinary tract symptom presence: symptoms present Lower urinary tract symptom detail: nocturia Qualified Code(s): N40.1 - Benign prostatic hyperplasia with lower urinary tract symptoms; R35.1 - Nocturia (5) DVT prophylaxis Current Visit: Yes Status: Acute SQ Heparin Subjective Principal diagnosis: COPD exacerbation Interval history: Pt seen and examined at bedside. No acute events overnight. Pt states he tolerated dinner well with no nausea. Shortness of breath, cough, and sputum production have all improved. Denies any chest pain. Unchanged abdominal pain related to ventral hernia. No headaches, numbness, and tingling. Objective PUL Vital signs: Last Vital Signs Temp 98.1 F 05/13/18 07:40 Pulse 56 05/13/18 07:25 Resp 16 05/13/18 08:06 BP 112/67 05/13/18 07:00 Pulse Ox 97 05/13/18 08:06 General appearance: no acute distress, alert Eyes: nonicteric ENT: oropharynx moist Neck: supple, no lymphadenopathy, no JVD Effort: normal Auscultation: bilateral: diminished breath sounds (bases), wheezes (diffuse fine) Percussion: bilateral: not dull Tactile fremitus: bilateral: normal Cardiovascular: regular rate and rhythm Gastrointestinal: normoactive bowel sounds, soft, non-tender, non-distended Integumentary: normal Extremities: no cyanosis, no edema, no clubbing, pink and warm, pulses normal Musculoskeletal: no deformities normal mental status, non-focal exam, pupils equal and round, motor strength normal and symmetric mood appropriate, affect normal Results - Laboratory Findings CBC and BMP: 05/13/18 03:26 05/13/18 03:26 ABG ABG pH 7.33 pH Units (7.32-7.45) 05/12/18 04:55 ABG pCO2 53 mmHg (35-45) H 05/12/18 04:55 ABG pO2 88 mmHg (85-104) 05/12/18 04:55 ABG O2 Saturation 96 % (95-98) 05/12/18 04:55 Abnormal lab findings: Abnormal lab results WBC 11.2 K/mcL (4.3-11.1) H 05/13/18 03:26 RBC 4.07 M/mcL (4.19-5.50) L 05/13/18 03:26 Hgb 12.6 g/dL (12.9-16.9) L 05/13/18 03:26 Neutrophils # 9.7 K/mcL (1.6-8.9) H 05/13/18 03:26 ABG pCO2 53 mmHg (35-45) H 05/12/18 04:55 ABG HCO3 28 mEq/L (21-27) H 05/12/18 04:55 ABG Total CO2 30 mEq/L (20-26) H 05/12/18 04:55 Creatinine 0.62 mg/dL (0.70-1.30) L 05/13/18 03:26 Glucose 144 mg/dL (70-105) H 05/13/18 03:26 POC Glucose 153 mg/dL (70-99) H 05/12/18 23:16 Phosphorus 2.3 mg/dL (2.7-4.5) L 05/13/18 03:26 AST 10 Units/L (13-39) L 05/13/18 03:26 Serum Total Protein 5.7 g/dL (6.4-8.9) L 05/13/18 03:26 Albumin 3.1 g/dL (3.5-5.7) L 05/13/18 03:26 Urine Protein 30 mg/dL (Neg-Trace) H 05/12/18 06:30 Urine Ketones Trace mg/dL (Negative) H 05/12/18 06:30 Urine Blood Moderate (Negative) H 05/12/18 06:30 Urine Bilirubin Small (Negative) H 05/12/18 06:30 Urine Microscopic RBC 50-100 per hpf (0-3) H 05/12/18 06:30 Urine Microscopic WBC 5-15 per hpf (0-3) H 05/12/18 06:30 Ur Squamous Epith Cells Many per lpf (None-Few) H 05/12/18 06:30 - Microbiology Findings Microbiology Findings: Microbiology, Last 48 Hours 05/12/18 08:56 Sputum Culture - Preliminary Sputum 05/12/18 06:30 Legionella Antigen - Final Urine,[place] Streptococcus pneumoniae Antigen (M - Final 05/12/18 01:25 Blood Culture - Preliminary Peripheral Venipuncture Culture is incubating and being continuously monitored for growth. Final report to follow. 05/12/18 01:29 Blood Culture - Preliminary Peripheral Venipuncture Culture is incubating and being continuously monitored for growth. Final report to follow. - Clinical Findings Intake & Output: Intake & Output 05/12/18 05/13/18 05/13/18 23:59 07:59 15:59 Intake Total 613.5 / 613.5 783 / 783 Output Total 900 / 900 600 / 600 Balance -286.5 / -286.5 183 / 183 Weight 59.45 kg
[2018-05-13] MEDS ORDERED: Tiotropium 18 MCG inhalation IH SCH (10:00)
[2018-05-13] MEDS ORDERED: *HR* LORazepam 2 MG/ML VIAL IVP PRN (10:42)
[2018-05-13] MEDS ORDERED: *HR* Dextrose 50 % in Water (Syg) 50 ML SYRINGE IVP PRN (10:42)
[2018-05-13] MEDS ORDERED: Dextrose Gel 15 GM/37.5 ML TUBE PO PRN ×2 (10:42)
[2018-05-13] MEDS ORDERED: D5% in Water 1,000 ML IVC PRN (10:42)
[2018-05-13] MEDS ORDERED: Naloxone 0.4 MG/ML INJ IVP PRN (10:42)
[2018-05-13] MEDS ORDERED: Insulin LISPRO 300 UNITS/3 ML VIAL SQ SCH ×2 (12:00→21:00)
[2018-05-13] MEDS ORDERED: Budesonide/Formoterol 160/4.5 1 PUFF INH IH ONE (19:43)
[2018-05-13] MEDS: Budesonide/Formoterol 160/4.5 1 PUFF INH IH SCH (19:52)
[2018-05-13] MEDS ORDERED: Budesonide/Formoterol 160/4.5 1 PUFF INH IH SCH (22:00)
[2018-05-14] MEDS: Ipratropium/Albuterol Neb 3 ML IH SCH ×3 (04:12→11:59)
[2018-05-14 06:26] LABS: Basophils % 0.3 %; Hematocrit 36.5 % (37.5-50.1); Hemoglobin 12.4 g/dL (12.9-16.9); Immature Granulocytes % 1.3 % (0-4); Lymphocytes # 1.4 K/mcL (0.6-4.6); Mean Corpuscular Hemoglobin 31.3 pg (28.0-33.3); Mean Corpuscular Volume 92.2 fL (83.0-100.0); Mean Platelet Volume 9.9 fL (9.4-12.4); Monocytes # 0.9 K/mcL (0.0-1.3); Monocytes % 8.3 %; Neutrophils # 7.9 K/mcL (1.6-8.9); Platelet Count 208 K/mcL (140-400); Red Blood Count 3.96 M/mcL (4.19-5.50); Red Cell Distribution Width 12.3 % (11.5-14.5); Segmented Neutrophils % 76.1 %
[2018-05-14 06:32] LABS: Alanine Aminotransferase 11 Units/L (7-52); Albumin 3.1 g/dL (3.5-5.7); Albumin/Globulin Ratio 1.3 (1.1-2.2); Alkaline Phosphatase 47 Units/L (34-104); Aspartate Amino Transferase 11 Units/L (13-39); BUN/Creatinine Ratio 28 (6-26); Bilirubin,Total 0.2 mg/dL (0.3-1.0); Blood Urea Nitrogen 19 mg/dL (8-23); Calcium 8.6 mg/dL (8.6-10.3); Carbon Dioxide 27 mEq/L (23-29); Chloride 109 mEq/L (98-107); Globulin 2.4 g/dL (2.4-3.5); Glucose 124 mg/dL (70-105); Magnesium 1.5 mg/dL (1.6-2.6); Osmolality,Calculated 298 (280-300); Phosphorous 2.5 mg/dL (2.7-4.5); Potassium 3.4 mEq/L (3.5-5.1); Sodium 142 mEq/L (136-145); Total Protein 5.5 g/dL (6.4-8.9); eGFR For Non-African Americans > 60 (> 60)
--- NOTE | 2018-05-14 07:03 | Pulmonology Progress Note ---
Date of Encounter: 05/14/18 Assessment and Plan (1) Acute respiratory failure with hypoxia and hypercapnia Current Visit: Yes Status: Acute Pt was intubated at [place] on 05/11 for worsening ABGs and respiratory distress Likely precipitated by COPD exacerbation related to viral infection Pt was tachypnic and tachycardic on arrival at [place], but likely related to respiratory distress vs true SIRS reaction WBC slightly elevated at 11.2 today - likely related to steroid therapy CXR from 05/12 revealed bibasilar airspace disease, atelectasis vs pneumonia. No obvious consolidations. Respiratory infection panel negative MRSA swab negative Strep pneumo and legionella antigens negative Serial ABGs improved and successfully extubated on 05/12 to BiPAP Continue to monitor Blood cultures x2 pending Sputum culture pending - bacteria seen with few gram positive cocci Mycoplasma IgG and IgM pending Levaquin day 2 Solumedrol 40mg TID Ativan prn for anxiety Scheduled duonebs Supplemental O2 with goal SpO2 >88% Restarting po home meds Pt states he only has albuterol rescue inhaler at home. Will start on some maintenance inhalers for home. To follow with pulmonology after discharge. Stable for transfer to telemetry bed. Spoke with Dr. Soliz who accepted the pt at 08:53 (2) COPD exacerbation Current Visit: Yes Status: Acute Plan as above (3) Hyperlipidemia Current Visit: Yes Status: Acute Continue home statin Qualifiers: Hyperlipidemia type: unspecified Qualified Code(s): E78.5 - Hyperlipidemia, unspecified (4) BPH (benign prostatic hyperplasia) Current Visit: Yes Status: Chronic Continue home meds Qualifiers: Lower urinary tract symptom presence: symptoms present Lower urinary tract symptom detail: nocturia Qualified Code(s): N40.1 - Benign prostatic hyperplasia with lower urinary tract symptoms; R35.1 - Nocturia (5) DVT prophylaxis Current Visit: Yes Status: Acute SQ Heparin Subjective Principal diagnosis: COPD exacerbation Interval history: Pt seen and examined at bedside. No acute events overnight. Pt states he tolerated dinner well with no nausea. Shortness of breath, cough, and sputum production have all improved. Denies any chest pain. Unchanged abdominal pain related to ventral hernia. No headaches, numbness, and tingling. Objective PUL Vital signs: Last Vital Signs Temp 98.5 F 05/14/18 00:02 Pulse 81 05/14/18 04:00 Resp 18 05/14/18 04:14 BP 125/84 05/14/18 04:00 Pulse Ox 95 05/14/18 04:14 Results - Laboratory Findings CBC and BMP: 05/14/18 05:52 05/14/18 05:52 ABG ABG pH 7.33 pH Units (7.32-7.45) 05/12/18 04:55 ABG pCO2 53 mmHg (35-45) H 05/12/18 04:55 ABG pO2 88 mmHg (85-104) 05/12/18 04:55 ABG O2 Saturation 96 % (95-98) 05/12/18 04:55 Abnormal lab findings: Abnormal lab results RBC 3.96 M/mcL (4.19-5.50) L 05/14/18 05:52 Hgb 12.4 g/dL (12.9-16.9) L 05/14/18 05:52 Hct 36.5 % (37.5-50.1) L 05/14/18 05:52 ABG pCO2 53 mmHg (35-45) H 05/12/18 04:55 ABG HCO3 28 mEq/L (21-27) H 05/12/18 04:55 ABG Total CO2 30 mEq/L (20-26) H 05/12/18 04:55 Potassium 3.4 mEq/L (3.5-5.1) L 05/14/18 05:52 Chloride 109 mEq/L (98-107) H 05/14/18 05:52 Creatinine 0.69 mg/dL (0.70-1.30) L 05/14/18 05:52 BUN/Creatinine Ratio 28 (6-26) H 05/14/18 05:52 Glucose 124 mg/dL (70-105) H 05/14/18 05:52 POC Glucose 143 mg/dL (70-99) H 05/13/18 20:20 Phosphorus 2.5 mg/dL (2.7-4.5) L 05/14/18 05:52 Magnesium 1.5 mg/dL (1.6-2.6) L 05/14/18 05:52 Total Bilirubin 0.2 mg/dL (0.3-1.0) L 05/14/18 05:52 AST 11 Units/L (13-39) L 05/14/18 05:52 Serum Total Protein 5.5 g/dL (6.4-8.9) L 05/14/18 05:52 Albumin 3.1 g/dL (3.5-5.7) L 05/14/18 05:52 Urine Protein 30 mg/dL (Neg-Trace) H 05/12/18 06:30 Urine Ketones Trace mg/dL (Negative) H 05/12/18 06:30 Urine Blood Moderate (Negative) H 05/12/18 06:30 Urine Bilirubin Small (Negative) H 05/12/18 06:30 Urine Microscopic RBC 50-100 per hpf (0-3) H 05/12/18 06:30 Urine Microscopic WBC 5-15 per hpf (0-3) H 05/12/18 06:30 Ur Squamous Epith Cells Many per lpf (None-Few) H 05/12/18 06:30 - Microbiology Findings Microbiology Findings: Microbiology, Last 48 Hours 05/12/18 08:56 Sputum Culture - Preliminary Sputum Gram Negative Nam 05/12/18 06:30 Legionella Antigen - Final Urine,[place] Streptococcus pneumoniae Antigen (M - Final - Clinical Findings Intake & Output: Intake & Output 05/13/18 05/13/18 05/14/18 15:59 23:59 07:59 Intake Total 480 / 480 Output Total 300 / 300 200 / 200 375 / 375 Balance 180 / 180 -200 / -200 -375 / -375 Weight 60.2 kg Consult Discharge Plan - Plan Referrals: NONE,PCP [Primary Care Provider] -
[2018-05-14] MEDS: *HR* Heparin 5,000 UNIT/ML VIAL SQ SCH (07:20)
[2018-05-14] MEDS: Budesonide/Formoterol 160/4.5 1 PUFF INH IH SCH (07:30)
[2018-05-14] MEDS: MethylPREDNISolone 40 MG/ML VIAL IVP SCH (08:08)
[2018-05-14] MEDS: lamoTRIgine 100 MG TABLET PO SCH (08:08)
[2018-05-14] MEDS: Insulin LISPRO 300 UNITS/3 ML VIAL SQ SCH ×2 (08:18→12:08)
[2018-05-14] MEDS ORDERED: Levofloxacin 500 MG/100 ML 500 MG/100 ML BAG IVPB SCH (09:00)
[2018-05-14] MEDS ORDERED: Tiotropium 18 MCG inhalation IH SCH (10:00)
--- NOTE | 2018-05-14 11:29 | Discharge Summary ---
<Lalo Sepulveda - Last Filed: 05/14/18 14:11> Orders not resulted at time of discharge: Pending orders 05/12/18 01:25 Culture,Blood [BC] Stat 05/12/18 06:29 Mycoplasma pneumoniae IgG IgM Routine Date of Encounter: 05/14/18 Time of Encounter: 10:30 Hospital course: Mr. Perales is a 63 year old male - Time Spent with Patient Total time spent providing and/or coordinating discharge services: Less than 30 minutes (12 min) - Discharge Medications Prescriptions: Albuterol Sulfate [Albuterol Inhaler] 2 puff IH Q2HR PRN #1 inhaler PRN Reason: Shortness Of Breath/Wheezing Budesonide/Formoterol 160/4.5 [Symbicort 160/4.5] 2 puff IH BIDR #1 inh levoFLOXacin [Levaquin] 500 mg PO DAILY 2 Days #3 tablet predniSONE [PredniSONE] 20 mg PO AD 15 Days #41 tablet Tiotropium [Spiriva] 18 mcg IH DAILYR #1 inh Home Medications: Benztropine [Cogentin] 1 mg PO DAILY 05/13/18 [History] Cholecalciferol (D-3) [Vitamin D] 2,000 unit PO DAILY 05/13/18 [History] DULoxetine [Cymbalta] 30 mg PO DAILY 05/13/18 [History] Loperamide [Imodium] 4 mg PO Q4HR PRN 05/13/18 [History] Lovastatin [Mevacor] 20 mg PO HS 05/13/18 [History] Multivit-Min/FA/Lycopen/Lutein [A Thru Z Select Men 50+ Tablet] 1 tab PO DAILY 05/13/18 [History] Omeprazole [PriLOSEC] 20 mg PO DAILY 05/13/18 [History] Oxybutynin [Ditropan] 5 mg PO BID 05/13/18 [History] Oxycodone HCl/Acetaminophen [Percocet 10-325 mg Tablet] 1 tab PO Q6H PRN 05/13/18 [History] Tamsulosin HCl [Flomax] 0.4 mg PO DAILY 05/13/18 [History] Topiramate [Topamax] 200 mg PO BID 05/13/18 [History] lamoTRIgine [Lamictal] 300 mg PO HS 05/13/18 [History] risperiDONE [Risperdal] 4 mg PO HS 05/13/18 [History] Albuterol Sulfate [Albuterol Inhaler] 2 puff IH Q2HR PRN #1 inhaler 05/14/18 [Rx] Budesonide/Formoterol 160/4.5 [Symbicort 160/4.5] 2 puff IH BIDR #1 inh 05/14/18 [Rx] Tiotropium [Spiriva] 18 mcg IH DAILYR #1 inh 05/14/18 [Rx] levoFLOXacin [Levaquin] 500 mg PO DAILY 2 Days #3 tablet 05/14/18 [Rx] predniSONE [PredniSONE] 20 mg PO AD 15 Days #41 tablet 05/14/18 [Rx] Allergies/Adverse Reactions: Allergy/AdvReac Type Severity Reaction Status Date / Time vancomycin Allergy Hives Verified 05/11/18 13:30 Date of admission: 05/12/18 01:46 Primary care physician: PCP NONE Consults: 05/12/18 01:41 Consult to Critical Care [CONS] Routine Consulting Provider: [facility] Reason for Consult: acute hypoxic respiratory failure Call Completed: Yes - Constitutional Vitals: Temp Pulse Resp BP Pulse Ox 97.7 F 98 20 113/76 94 05/14/18 12:00 05/14/18 12:00 05/14/18 12:00 05/14/18 12:00 05/14/18 12:00 - Patient Status Disposition: Home, Self-Care Condition: Good - Discharge Instructions Instructions: Chronic Obstructive Pulmonary Disease (DC) Follow Up With: Cipriano Guo MD [Partnered Physician] - (f/u 2 weeks with pulm office) [facility] Referral Line [Outside] Additional Instructions: Please follow up with your primary care provider(PCP) within the next 5-7 days, if you do not have a PCP we have provided the [facility] Provider Hotline. Please use medications as directed. Recommend follow up with Pulmonology Clinic in 2 weeks. Please return or seek medical if you have new or worsening symmptoms such as shortness of breath, chest pain, confusion. - Attending Attestation I saw evaluated and examined this patient and my medical decision-making was reviewed with the Resident Physician, Carlton Cronin. I agree with the documented findings, disposition and treatment plan as described except to any changes set forth below. We independently had [id number] contact with the patient. Patient with history of COPD, diabetes, hypertension was hospitalized here after presenting to [facility] with complaints of cough along with sputum and shortness of breath. He was acidotic and required intubation and mechanical ventilation after he failed to improve with BiPAP. He was then admitted to ICU and treated for this. He was eventually extubated the next day and since then has been recovering well. He was diagnosed with COPD exacerbation and has been treated accordingly. He is now doing much better and is not requiring O2 supplementation. He is stable to be discharged home today. He will follow up with pulmonology after discharge for further management. On exam, patient is awake and alert. Patient has prolonged expiratory phase. Heart sounds are normal. No pedal edema. Abdomen is soft, nontender. <Carlton Cronin - Last Filed: 05/14/18 14:33> - NOTES TO OUTPATIENT PROVIDER Notes to Outpatient Provider: Patient discharged with inhalers, 3 days levaquin, and 2 week steroid taper. F/u with pulm in 2 weeks. Orders not resulted at time of discharge: Pending orders 05/12/18 01:25 Culture,Blood [BC] Stat 05/12/18 06:29 Mycoplasma pneumoniae IgG IgM Routine Date of Encounter: 05/14/18 Time of Encounter: 09:40 - Discharge Diagnosis (1) Acute respiratory failure with hypoxia and hypercapnia Priority: Primary Status: Acute (2) COPD exacerbation Priority: Secondary Status: Acute (3) Hyperlipidemia Priority: Secondary Status: Chronic Qualifiers: Hyperlipidemia type: unspecified Qualified Code(s): E78.5 - Hyperlipidemia, unspecified (4) BPH (benign prostatic hyperplasia) Priority: Secondary Status: Chronic Qualifiers: Lower urinary tract symptom presence: symptoms present Lower urinary tract symptom detail: nocturia Qualified Code(s): N40.1 - Benign prostatic hyperplasia with lower urinary tract symptoms; R35.1 - Nocturia Hospital course: Mr. Perales is a 63M with PMH of COPD, diabetes, hyperlipidemia, hypertension, bipolar disorder, schizophrenia. Patient arrived to [place] emergency department on 05/11 complaining of cold like symptoms. He reported productive cough with sputum, generalized muscle aches. In [place] emergency department, he was hypoxic, somnolent. Initial ABG showed evidence of respiratory acidosis. Serial ABG's were drawn in [place] emergency department, showing that his acidosis and CO2 retention was progressively worsen ing. Patient was initially placed on BiPAP without any improvement in his blood gases. He initially refused intubation, but later agreed. Patient was intubated and transferred to [place] for further management and workup. WBC slightly elevated at 11.2. Patient started on Levaquin, IV steroids, and additional inhalers (symbcort, albuterol, spiriva). CXR from 05/12 revealed bibasilar airspace disease, atelectasis vs pneumonia. No obvious consolidations. Respiratory infection panel negative. MRSA swab negative. Strep pneumo and legionella antigens negative. Serial ABGs improved and successfully extubated on 05/12 to BiPAP. On 05/14 Patient doing well on room air, no shortness of breath, no chest pain. Patient's vitals remain stable. Patient would like to go home today, plan to discharge home to complete 5 day antibiotic course, 2 week steroid taper, and follow up with pulmonolgoy clinic as outpatient. Discharge discussed with: patient - Time Spent with Patient Total time spent providing and/or coordinating discharge services: Less than 30 minutes Date of admission: 05/12/18 01:46 Primary care physician: PCP NONE Consults: 05/12/18 01:41 Consult to Critical Care [CONS] Routine Consulting Provider: [facility] [place] Reason for Consult: acute hypoxic respiratory failure Call Completed: Yes Discharging clinician: Lalo Sepulveda Anticipated date of discharge: 05/14/18 - Constitutional Vitals: Temp Pulse Resp BP Pulse Ox 97.4 F L 89 19 121/84 97 05/14/18 08:00 05/14/18 08:00 05/14/18 08:00 05/14/18 08:00 05/14/18 08:00 General appearance: Present: A&O X 3, no acute distress, underweight. Absent: answers questions appropriately Exam: . - Head Head exam: Present: atraumatic - Eye Eye exam: Present: normal appearance, conjuntiva pink, sclera anicteric - Neck Neck exam general surgery: Present: supple, trachea midline. Absent: lymphadenopathy - Respiratory Respiratory exam: Present: CTAB. Absent: accessory muscle use, rales, respiratory distress, rhonchi, wheezes - Cardiovascular Cardiovascular exam: Present: RRR, +S1, +S2. Absent: diastolic murmur, gallop, rubs, systolic murmur - GI/Abdominal GI/Abdominal exam: Present: normal bowel sounds, soft, no peritoneal signs. Absent: distended, tenderness - Extremities Exam Extremities exam: Present: warm, radial pulses palpable and symmetrical. Absent: calf tenderness, cyanotic, pedal edema - Neurological Exam Neurological exam: Present: alert, oriented X3, no focal deficits. Absent: pronater drift, facial droop, speech deficit - Skin Skin exam: Present: dry, intact - Patient Status Functional capacity at discharge: independent ambulation Overall status at discharge: patient is back to baseline - Diet and Activity Activity: increase activity as tolerated Diet: advance to your usual diet
[2018-05-14 12:07] VITALS: BP 113/76
[2018-05-14 15:20] LABS: Mycoplasma pneumoniae IgG 0.07 U/L (<=0.09)
[2018-05-14] MEDS ORDERED: lamoTRIgine 100 MG TABLET PO SCH (21:00)
[2018-05-15] MEDS ORDERED: levoFLOXacin 500 MG TABLET PO SCH (09:00)
== END 2018-05-14 14:30 | disposition home or self-care (01) | DRG 140 ==
LOC: ICNU
PROVIDERS: ADMIT Internal Medicine; ATTEND Internal Medicine